=== PATIENT | male | born 1950 | race Caucasian/White ===

== ENCOUNTER 2017-07-18 01:46 | Inpatient (IN) | payer OTHER, MEDICARE ==
[~2017-07-18] VITALS: Ht 177.8 cm; Wt 100.4 kg
[~2017-07-18 01:46] MED LIST: ATORVASTATIN CA40 M1 PO; IRBESARTAN150 M1 PO
--- NOTE | 2017-07-18 10:54 | Admission Core Measures ---
Acute Coronary Syndrome (CM) ACS Core Measures Acute Coronary Syndrome Diagnosis No Congestive Heart Failure (NEW) CHF Core Measures Congestive Heart Failure Diagnosis No Cerebrovascular Accident CVA Core Measures CVA/TIA Diagnosis No Venous Thromboembolism VTE Core Tor (View Protocol) VTE Risk Factors Surgery No Mechanical VTE Prophylaxis d/t N/A MechProphylax Ordered No VTE Pharm Prophylaxis d/t NA PharmProphylax ordered Problem List As ranked by this Provider includes Assessment & Plan 1. Unilateral primary osteoarthritis, right knee HOME MEDS Home Med List Atorvastatin Calcium 40 MG TABLET 1 TAB PO DAILY CHOLESTEROL (Reported) Irbesartan 150 MG TABLET 1 TAB PO DAILY BP (Reported)
--- NOTE | 2017-07-18 11:06 | Patient Discharge Instructions ---
Discharge Instructions General Discharge Information You were seen/treated for: Right knee pain related to unilateral primary osteoarthritis You had these procedures: Right total knee replacement Watch for these problems: Increasing pain despite the use of pain medication Increasing redness, warmth or swelling Drainage of any type from incision Inability to bear weight on operative leg Persistent nausea and vomiting Fever greater than 101.5 degrees Do not soak the wound: Yes No bath, but you may shower: Yes Other wound care: Please keep wound clean and dry. No ointments or lotions of any type on or near incision at any time. No exceptions. Your dressing will be changed by your nurse on the second day after your surgery. Daily dry dressing changes are recommended each day thereafter. Do not soak your wound in a bath at any time until otherwise indicated by your surgeon. You may shower, please dry wound immediately after shower with a clean towel. Special Instructions: Aspirin: You are taking this medication to help prevent blood clot formation. Please take with food to protect your stomach lining. Please take as directed. Constipation: Pain medication can cause constipation. Dr. Davis has recommended that you take Colace and miralax each day. You may discontinue this medication if you develop loose stool or diarrhea. If you wish to continue this medication, it is available over the counter. If you are unable to move your bowels after several days, if you are unable to pass gas and are developing bloating, nausea, or vomiting as a result, please contact your doctor. Diet Continue normal diet: Yes Recommended Diet: Regular Activity Full Activity/No Limits: No Activity Self Limited: Yes Pounds, do NOT lift more than: 10 Acute Coronary Syndrome Inclusion Criteria At DC or during hospital stay patient has or had the following: ACS DIAGNOSIS No Discharge Core Measures Meds if any: Prescribed or Continued at Discharge Meds if any: NOT Prescribed or Continued at Discharge Congestive Heart Failure Inclusion Criteria At DC or during hospital stay patient has or had the following: CHF DIAGNOSIS No Discharge Core Measures Meds if any: Prescribed or Continued at Discharge Meds if any: NOT Prescribed or Continued at Discharge Cerebrovascular accident Inclusion Criteria At DC or during hospital stay patient has or had the following: CVA/TIA Diagnosis No Discharge Core Measures Meds if any: Prescribed or Continued at Discharge Meds if any: NOT Prescribed or Continued at Discharge Venous thromboembolism Inclusion Criteria VTE Diagnosis No VTE Type NONE VTE Confirmed by (Test) NONE Discharge Core Measures - Per Current guidelines, there needs to be overlap - treatment for the first 5 days of Warfarin therapy. - If discharged on Warfarin prior to 5 days of - overlap therapy, the patient will need to be - assessed for post discharge needs including - *Post discharge parental anticoagulation - *Warfarin and/or parental anticoagulation education - *Follow up date to check INR post discharge At least 5 days overlap therapy as Inpatient No Meds if any: Prescribed or Continued at Discharge Note: Overlap Therapy is Warfarin and Anticoagulant Meds if any: NOT Prescribed or Continued at Discharge
--- NOTE | 2017-07-18 11:07 | Surgical Discharge Summary ---
Visit Information Visit Dates Admission Date: 07/18/17 Discharge Date: 07/20/17 History of Present Illness Chief Complaint: Right knee pain related to unilateral primary osteoarthritis Surgical History Pertinent Surgical History: non-contributory Review of Systems: See H&P Hospital Course Course Attending Physician: Jesse Davis MD Primary Care Physician: Vlad Schwartz MD Hospital Course: Patient was admitted to the hospital for an elective total joint replacement. The procedure was tolerated well and patient was transferred to a general surgical floor. Diet was advanced and tolerated. The patient was evaluated and treated by physical therapy. At the time of hospital discharge, the vital signs were stable, neurovascular status was intact, and pain was controlled with the use of oral pain medications. Allergies: Coded Allergies: No Known Allergies (07/17/17) Disposition Summary Disposition Principal Diagnosis: Right knee unilateral primary osteoarthritis Additional Diagnosis: None Discharge Disposition: home health services Discharge Instructions General Discharge Information Code Status: Full Code Patient's Diet: Regular, advance as tolerated Patient's Activity: WBAT Follow-Up Instructions/Appts: Follow up with Dr. Davis in 6 weeks from date of surgery. Please call office to arrange &/or confirm this appointment. Medications at Discharge Discharge Medications: Continue taking these medications: Irbesartan (Irbesartan) 150 MG TABLET 1 Tablet ORAL DAILY Atorvastatin Calcium (Atorvastatin Calcium) 40 MG TABLET 1 Tablet ORAL DAILY Start taking the following new medications: Aspirin (Ecotrin*) 325 MG TABLET.DR 1 Tablet ORAL TWICE DAILY Qty = 60 No Refills Docusate Sodium (Colace) 100 MG CAPSULE 1 Capsule ORAL TWICE DAILY Qty = 14 No Refills Instructions: DISCONTINUE USE IF YOU DEVELOP LOOSE STOOL OR DIARRHEA Polyethylene Glycol 3350 (Miralax) 17 GRAM POWD.PACK 1 Packet ORAL DAILY Qty = 7 No Refills Instructions: dissolve in water, DISCONTINUE USE IF YOU DEVELOP LOOSE STOOL OR DIARRHEA Morphine Sulfate (Ms Contin) 15 MG TABLET.ER 1 Tablet ORAL TWICE DAILY Qty = 6 No Refills Hydromorphone HCl (Dilaudid) 2 MG TABLET 1-2 Tablet ORAL EVERY 4-6 HOURS NEEDED as needed for PAIN Qty = 36 No Refills Omeprazole Magnesium (Prilosec Otc) 20 MG TABLET.DR 1 Tablet ORAL DAILY Qty = 30 No Refills
[2017-07-18] MEDS ORDERED: COLACE100 M1 PO (12:09)
[2017-07-18] MEDS ORDERED: ASPIRIN EC325 M2 PO (12:09)
[2017-07-18] MEDS ORDERED: DILAUDID2 M1 PO (12:09)
[2017-07-18] MEDS ORDERED: MIRALAX17 G1 PO (12:09)
[2017-07-18] MEDS ORDERED: MS CONTIN15 M3 PO (12:09)
[2017-07-18] MEDS ORDERED: PRILOSEC OTC20 M1 PO (12:09)
--- NOTE | 2017-07-18 16:02 | Operative Report ---
Operative/Inv Procedure Report Surgery Date: 07/18/17 Name of Procedure: Right total knee replacement Pre-Operative Diagnosis: Primary right knee DJD Post-Operative Diagnosis: Same Estimated Blood Loss: 50ml to 100ml Surgeon/Radiation Engineer: Jesse Davis MD Anesthesia: block Operative/Procedure Note Note: Description of Procedure: The patient was taken to the operating room and positively identified. After induction of spinal anesthesia and administration of appropriate pre-operative antibiotics, the patient was positioned supine on the operating room table and all bony prominences were well padded. A well-padded pneumatic tourniquet was placed on the right upper thigh. After performing a surgical timeout, the right lower extremity was prepped and draped in the usual sterile fashion. After exsanguination with Esmarch the tourniquet was inflated to 250mm of mercury. A standard medial parapatellar approach was made to the knee. This was carried down through skin and subcutaneous tissue to the level of the fascia. Meticulous hemostasis was maintained with Bovie electrocautery. The extensor mechanism and patellar retinaculum were opened sharply and the patella was everted. The infrapatellar fat was resected in order to improve exposure. Osteophytes were trimmed from the patella and femoral condyles and the patella was re-everted and tucked laterally. A medial release was performed and the cruciate ligaments were resected. The tibia was then subluxed anteriorly. Utilizing the appropriate extra-medullary guide, the proximal tibia was trimmed perpendicular to the long axis of the tibial shaft. Attention was then turned to the femur. After opening the medullary canal, the distal femoral cut was made in 6 degrees of valgus utilizing the appropriate intra-medullary guide. The extension gap was checked and found to be appropriate. The femur was then sized and the remainder of the femoral cuts were made with a size 5 4-in-1 femoral cutting guide. The flexion gap was checked and found to be symmetric and appropriate. The knee was then trialed with a size 5 femoral component, a size 6 tibial component and a size 13 mm polyethylene insert. The patella was trimmed to accept an A 38 patella. This yielded excellent range of motion, stability and patellar tracking. All trial components were removed and the knee was copiously irrigated with sterile saline. All components were cemented into place with Stephenson Simplex cement. All the components were of the Stephenson Triathlon knee system of the above stated sizes. The knee was again irrigated after cementation. The extensor mechanism and patellar retinaculum were repaired using interrupted #1 vicryl suture. The skin was re-approximated with 2-0 vicryl and closed with henrry. A sterile dressing was applied, the tourniquet was deflated, the patient was awakened and taken to the recovery room in satisfactory condition.
[2017-07-18 17:18] VITALS: BP 139/73
--- NOTE | 2017-07-18 17:25 | PN- Orthopedic ---
Subjective Subjective: Postop check: Patient without complaints, no pain. He tolerated the surgery and anesthesia well and is resting comfortably in his bed Objective Vital Signs and I&Os Intake & Output 07/18 1600 07/18 0800 07/18 0000 07/17 1600 07/17 0800 07/17 0000 Intake Total Output Total Balance Patient 205 lb Weight Vital signs stable, afebrile Physical Exam: well-developed well-nourished no apparent distress. HEENT: Atraumatic, extraocular motion intact Neck: Supple, no lymphadenopathy Respiratory: No respiratory distress Extremities: No edema RIGHT lower extremity dressing in place, Incision line is clean dry and intact Compression wrap in place. ALPS in place Neurovascularly intact distally Bilateral calves are supple, nontender. Neuro: Alert and oriented x3 Psych: Mood affect normal, normal memory normal judgment. Skin: Warm and dry, no rash on exposed skin Assessment/Plan Assessment/Plan Postop day 0 status post right total knee arthroplasty Perioperative antibiotics. Pain medication as needed. Out of bed Physical therapy, weightbearing as tolerated IV fluids Regular diet Follow a.m. labs Aspirin for DVT prophylaxis ALPS for DVT prophylaxis Regular home meds Dressing change postop day 2 Core Measures Venous Thromboembolism VTE Risk Factors Surgery No Mechanical VTE Prophylaxis d/t N/A MechProphylax Ordered No VTE Pharm Prophylaxis d/t NA PharmProphylax ordered
[2017-07-18 17:28] VITALS: BP 128/72
[2017-07-18 21:57] VITALS: BP 133/64
[2017-07-19 02:13] VITALS: BP 125/50
[2017-07-19 05:59] VITALS: BP 116/80
[2017-07-19 07:54] LABS: ABSOLUTE BASOPHIL COUNT 0 /CUMM (0.0-0.2); ABSOLUTE EOSINOPHIL COUNT 0.2 /CUMM (0.0-0.7); ABSOLUTE GRANULOCYTE CT 4.5 /CUMM (1.4-6.5); ABSOLUTE LYMPH COUNT 0.8 /CUMM (1.2-3.4); ABSOLUTE MONOCYTE COUNT 0.9 /CUMM (0.10-0.60); BASOPHIL % 0.4 % (0.0-2.0); EOSINOPHIL % 2.8 % (0-5); GRANULOCYTE % 70.5 % (42.2-75.2); MEAN CORPUSCULAR HGB 34.5 PG (27.0-31.0); MEAN CORPUSCULAR HGB CONC 35.3 G/DL (33.0-37.0); MEAN CORPUSCULAR VOLUME 97.7 FL (80.0-94.0); MEAN PLATELET VOLUME 8.7 FL (7.4-10.4); PLATELET COUNT 157 /CUMM (130-400); RBC DISTRIBUTION WIDTH 13.3 % (11.5-14.5); RED BLOOD CELL CT 3.48 /CUMM (4.70-6.10); WHITE BLOOD CELL COUNT 6.3 /CUMM (4.8-10.8)
--- NOTE | 2017-07-19 08:10 | PN- Orthopedic ---
Subjective Subjective: No acute events overnight, required IV pain medication for right knee pain, currently pain is 3 out of 10, p.o. Dilaudid did not help him much. We considered changing his medication to Percocet however states that that causes too much constipation and he would rather stay with the Dilaudid. No fever no flulike illness Objective Vital Signs and I&Os Vital Signs Date Time Temp Pulse Resp B/P B/P Pulse O2 O2 Flow FiO2 Mean Ox Delivery Rate 07/19 0802 98.1 77 20 116/80 07/19 0559 98.1 77 20 116/80 96 Room Air 07/19 0213 98.3 60 20 125/50 96 Room Air 07/18 2157 97.3 67 20 133/64 97 07/18 1728 96.4 60 20 128/72 97 Room Air Intake & Output 07/19 1600 07/19 0800 07/19 0000 07/18 1600 07/18 0800 07/18 0000 Intake Total 840 840 Output Total 1100 Balance -260 840 Intake, IV 600 600 Intake, Oral 240 240 Output, Urine 1100 Patient 221 lb 211 lb Weight Weight Reported by Patient Measurement Method Physical Exam: Well-developed well-nourished no apparent distress. HEENT: Atraumatic, extraocular motion intact Neck: Supple, no lymphadenopathy Respiratory: No respiratory distress Extremities: No edema RIGHT lower extremity dressing in place, Dressing is clean dry and intact Range of motion 5-45 degrees Compression wrap in place. ALPS in place Neurovascularly intact distally Bilateral calves are supple, nontender. Neuro: Alert and oriented x3 Psych: Mood affect normal, normal memory normal judgment. Skin: Warm and dry, no rash on exposed skin Results Last 48 Hours of Labs: Laboratory Tests 07/19 0630 Chemistry Sodium Pending Potassium Pending Chloride Pending Carbon Dioxide Pending Anion Gap Pending BUN Pending Creatinine Pending BUN/Creatinine Ratio Pending Hematology CBC w Diff Pending WBC Pending RBC Pending Hgb Pending Hct Pending MCV Pending MCH Pending MCHC Pending RDW Pending Plt Count Pending MPV Pending Assessment/Plan Assessment/Plan Postop day #1 status post right total knee arthroplasty. Perioperative antibiotics. Pain medication as needed. Out of bed Physical therapy, weightbearing as tolerated DC IV fluids Regular diet Follow a.m. labs Aspirin for DVT prophylaxis ALPS for DVT prophylaxis Regular home meds Dressing change postop day 2 Disposition: Likely to home tomorrow with [facility] services Core Measures Venous Thromboembolism VTE Risk Factors Surgery No Mechanical VTE Prophylaxis d/t N/A MechProphylax Ordered No VTE Pharm Prophylaxis d/t NA PharmProphylax ordered
[2017-07-19 14:00] VITALS: BP 122/70
[2017-07-19 18:00] VITALS: BP 152/64
[2017-07-19 22:00] VITALS: BP 105/74; BP 128/68; BP 134/62
[2017-07-20 06:49] VITALS: BP 140/76
--- NOTE | 2017-07-20 08:34 | PN- Orthopedic ---
Subjective Subjective: Patient reports pain controlled with Toradol. He is ambulating and cleared by PT. He is tolerating a diet, voiding spontanously and passing flatus. He offers no complaints. Objective Vital Signs and I&Os Vital Signs Date Time Temp Pulse Resp B/P B/P Pulse O2 O2 Flow FiO2 Mean Ox Delivery Rate 07/20 0649 98.2 91 20 140/76 96 Room Air 07/19 2200 99.0 94 20 134/62 95 Room Air 07/19 1800 98.8 90 20 152/64 94 Room Air 07/19 1400 97.9 72 20 122/70 96 Room Air Intake & Output 07/20 1600 07/20 0800 07/20 0000 07/19 1600 07/19 0800 07/19 0000 Intake Total 200 800 800 840 840 Output Total 900 3751 909 4637 Balance -700 -350 200 -260 840 Intake, IV 600 600 Intake, Oral 200 800 800 240 240 Output, Urine 900 7520 441 3183 Patient 221 lb 211 lb Weight Weight Reported by Patient Measurement Method Physical Exam: Gen - nad Cardiac - S1S2 noted Lungs - CTAB Abd - soft, nontender Ext - RLE dressing c/d/i, incision clsoed with henrry healing well with no signs of infection, mild swelling no erythema or drainage noted, nvi, pulses present, no edema or calf tenderness Current Medications: Current Medications Sig/Mike Start time Last Medication Dose Route Stop Time Status Admin Aspirin 325 MG BID 07/18 2100 AC 07/19 PO 2004 Atorvastatin Calcium 40 MG 1700 07/18 1700 AC 07/19 PO 1703 Docusate Sodium 100 MG BID 07/18 2100 AC 07/19 PO 2004 Hydromorphone HCl 2 MG Q4P PRN 07/18 1645 AC PO Hydromorphone HCl 4 MG Q4P PRN 07/18 1645 AC 07/19 PO 2119 Ketorolac 15 MG Q8P PRN 07/18 1645 AC 07/20 Tromethamine IV 07/21 1634 0813 Losartan Potassium 50 MG DAILY 07/19 0900 AC 07/19 PO 0802 Morphine Sulfate 2 MG Q2P PRN 07/18 1645 AC 07/19 IV 2227 Omeprazole 40 MG DAILY AC 07/19 0700 AC 07/20 PO 0609 Ondansetron HCl 4 MG Q6P PRN 07/18 1645 AC IV Patient Medication 1 ED ONE ONE 07/19 1645 DC 07/19 Teaching ED 07/19 1646 2025 Polyethylene Glycol 17 GM DAILY 07/19 0900 AC 07/19 PO 0802 Promethazine HCl 12.5 MG Q6P PRN 07/18 1645 AC IV 07/25 1129 Assessment/Plan Assessment/Plan 66 M POD 2 s/p R TKR, recovering well stable for discharge Reg diet Pain regimen prn Home meds on board DVT ppx - Asa 3525 bid, alps GI ppx on board Cont dry daily dressing changes D/c home with [facility] today Core Measures Venous Thromboembolism VTE Risk Factors Surgery No Mechanical VTE Prophylaxis d/t N/A MechProphylax Ordered No VTE Pharm Prophylaxis d/t NA PharmProphylax ordered
[2017-07-20 08:45] VITALS: BP 128/62
== END 2017-07-20 11:52 | disposition home health service (06) | DRG 470 ==
LOC: SDA 01:46 → ENRESERV 15:50 → ENTRNSPT 16:31 → EDTRNSPTSTS 16:46 → EDTRNSPT 16:46 → 2NA 17:06 → CMPTRNSPT 17:10 → ENPENDDIS 07-20 08:39 → ENTRNSPT 07-20 11:44 → EDTRNSPT 07-20 11:49 → EDTRNSPTSTS 07-20 11:49 → 2NA 07-20 11:52 → CMPTRNSPT 07-20 12:09
PROVIDERS: Nurse Practitioner
PROC: 0SRC0J9 Replacement of Right Knee Joint with Synthetic Substitute, Cemented, Open Approach (ICD-10-PCS; principal; 2017-07-18)
PROC: 3E0T3BZ Introduction of Anesthetic Agent into Peripheral Nerves and Plexi, Percutaneous Approach (ICD-10-PCS; 2017-07-18)
DX: M17.11 Unilateral primary osteoarthritis, right knee (principal); K21.9 Gastro-esophageal reflux disease without esophagitis; I10 Essential (primary) hypertension; E78.5 Hyperlipidemia, unspecified; Z96.652 Presence of left artificial knee joint
CPT/HCPCS: 2NASP; 36592; 82436; 97110-GO; 97116-GO; 97161-GP; C1713; J0131; J0690; J2550; J7042